=== PATIENT | female | born 1990 | race Caucasian/White ===

== ENCOUNTER 2021-05-02 13:34 | Emergency (ER) | payer MEDICAID ==
[~2021-05-02] VITALS: Ht 165.1 cm; Wt 81.8 kg
[2021-05-02] MEDS ORDERED: DIPH25CA83 PO (14:25)
[2021-05-02] MEDS ORDERED: PRED20TA PO (14:25)
== END 2021-05-02 14:40 | disposition home or self-care (01) ==
LOC: ER 13:34
DX: T63.441A Toxic effect of venom of bees, accidental (unintentional), initial encounter (principal); T78.40XA Allergy, unspecified, initial encounter; M79.605 Pain in left leg; Z79.899 Other long term (current) drug therapy; Y92.89 Other specified places as the place of occurrence of the external cause
CPT/HCPCS: 99283

== ENCOUNTER 2021-05-24 21:59 | Emergency (ER) | payer MEDICAID ==
[~2021-05-24] VITALS: Ht 165.1 cm; Wt 77.3 kg
[~2021-05-24 21:59] MED LIST: DIPH25CA83 PO
[2021-05-24 22:00] VITALS: BP 120/77
[2021-05-24 22:32] LABS: URINE HCG NEGATIVE (NEG)
[2021-05-24 22:35] LABS: CLARITY,URINE CLOUDY (Clear); COLOR,URINE YELLOW (Yellow); GLUCOSE, URINE NEGATIVE (Neg); KETONES,URINE NEGATIVE (Neg); LEUKOCYTE ESTERASE ,URINE NEGATIVE (Neg); NITRITES, URINE NEGATIVE (Neg); OCCULT BLOOD,URINE TRACE-INTACT (Neg); PROTEIN,URINE NEGATIVE (Neg)
[2021-05-24 22:38] LABS: BASOPHILS # (AUTO) 0.1 X10'3 (0-0.2); BASOPHILS % (AUTO) 0.9 % (0-1); EOSINOPHILS # (AUTO) 0.2 X10'3 (0-0.9); EOSINOPHILS % (AUTO) 2.1 % (0-6); HEMATOCRIT 41.6 % (35.0-45.0); HEMOGLOBIN 14.1 g/dl (12.0-16.0); LYMPHOCYTES # (AUTO) 3.1 X10'3 (1.1-4.8); LYMPHOCYTES % (AUTO) 35.5 % (21-51); MEAN CORPUSCULAR VOLUME 88.4 FL (78-98); MEAN PLATELET VOLUME 9.2 FL (7.4-10.4); MONOCYTES # (AUTO) 0.8 X10'3 (0-0.9); MONOCYTES % (AUTO) 8.7 % (2-12); NEUTROPHILS # (AUTO) 4.6 X10'3 (1.8-7.7); NEUTROPHILS % (AUTO) 52.8 % (42-75); PLATELET COUNT 255 X10'3 (140-440); RED CELL DISTRIBUTION WIDTH 15.4 % (11.5-14.5); WHITE BLOOD COUNT 8.7 X10'3 (4.5-11.0)
[2021-05-24 22:39] LABS: ALANINE AMINOTRANSFERASE 84 U/L (12-78); ALBUMIN 3.5 G/DL (3.4-5.0); ALBUMIN/GLOBULIN RATIO 0.9 (1.1-1.5); ALKALINE PHOSPHATASE 71 IU/L (46-116); ANION GAP 9 (8-16); ASPARTATE AMINO TRANSFERASE 35 U/L (10-37); BILIRUBIN,TOTAL 0.2 MG/DL (0.1-1.0); BLOOD UREA NITROGEN 23 MG/DL (7-18); BUN/CREATININE RATIO 24.7 (6.6-38.0); CALCIUM 8.3 MG/DL (8.5-10.1); CHLORIDE 104 MMOL/L (99-107); CREATININE 0.93 MG/DL (0.40-0.90); LIPASE 93 U/L (73-393); POTASSIUM 3.6 MMOL/L (3.5-5.1); SODIUM 139 MMOL/L (135-145); TOTAL CARBON DIOXIDE 26.2 MMOL/L (24-32); TOTAL PROTEIN 7.3 G/DL (6.4-8.2); eGFR 71 ML/MIN
[2021-05-24 22:40] LABS: GLUCOSE 135 MG/DL (70-104)
[2021-05-24 22:42] LABS: UA COLLECTION TYPE CLN CATCH MIDSTREAM
[2021-05-24 22:45] LABS: AMORPHOUS PHOSPHATES 3+; BACTERIA,URINE NONE SEEN /HPF (Neg); RBC,URINE NONE SEEN /HPF (0-2); SQUAMOUS EPITHELIAL CELL,UR NONE SEEN /LPF (FEW); WBC,URINE NONE SEEN /HPF (0-4)
== END 2021-05-25 05:57 | disposition left against medical advice (07) ==
LOC: ER 22:00
DX: R10.9 Unspecified abdominal pain (principal); Z53.21 Procedure and treatment not carried out due to patient leaving prior to being seen by health care provider
CPT/HCPCS: 36415; 80053; 81001; 81025; 83690; 85025

== ENCOUNTER 2021-08-22 00:23 | Emergency (ER) | payer MEDICAID ==
[~2021-08-22] VITALS: Ht 165.1 cm; Wt 5.7 kg
[2021-08-22 01:11] VITALS: BP 116/79
== END 2021-08-22 02:24 | disposition home or self-care (01) ==
LOC: ER 00:24
DX: Z13.89 Encounter for screening for other disorder (principal); F19.90 Other psychoactive substance use, unspecified, uncomplicated; Z56.0 Unemployment, unspecified; Z88.1 Allergy status to other antibiotic agents; Z79.899 Other long term (current) drug therapy
CPT/HCPCS: 99281

== ENCOUNTER 2021-10-07 01:49 | Emergency (ER) | payer MEDICAID ==
[~2021-10-07] VITALS: Ht 167.6 cm; Wt 58.0 kg
[2021-10-07 02:45] VITALS: BP 125/78
[2021-10-07] MEDS ORDERED: CLIN150C8 PO (03:22)
[2021-10-07] MEDS ORDERED: clindamycin 150mg capsule PO ONE (03:25)
[2021-10-07] MEDS ORDERED: ondansetron 4mg rapidly disintigrating tab PO ONE (03:25)
== END 2021-10-07 03:36 | disposition home or self-care (01) ==
LOC: ER 01:49
DX: L02.818 Cutaneous abscess of other sites (principal); Z56.0 Unemployment, unspecified; Z88.1 Allergy status to other antibiotic agents; Z79.899 Other long term (current) drug therapy
CPT/HCPCS: 99283

== ENCOUNTER 2021-11-04 01:21 | Emergency (ER) | payer MEDICAID ==
[~2021-11-04] VITALS: Ht 167.6 cm; Wt 58.0 kg
[~2021-11-04 01:21] MED LIST changes: +CLIN150C8 PO
[2021-11-04] MEDS ORDERED: diphenhydrAMINE 50 mg/ml inj IM ONE (01:35)
[2021-11-04] MEDS ORDERED: haloperidol lactate 5mg/ml inj IM ONE (01:35)
[2021-11-04] MEDS ORDERED: LORazepam 2 mg/ml vial IM ONE (01:35)
[2021-11-04] MEDS ORDERED: LORazepam 2 mg/ml vial ONE (01:36)
[2021-11-04] MEDS ORDERED: haloperidol lactate 5mg/ml inj ONE (01:37)
[2021-11-04] MEDS ORDERED: diphenhydrAMINE 50 mg/ml inj ONE (01:38)
--- NOTE | 2021-11-04 01:45 | NUR ---
The patient was [place] after she called 911 stating she did not know where she was at. Once the police arrived she became very agitated and and was screaming that she wanted to kill herself any way possible. On arrival to the ER she remained agitated and assaultive to staff. She was escorted to bed 25 in the ER and was placed in restraints.
[2021-11-04 02:59] LABS: BASOPHILS % (AUTO) 0.5 % (0-1); EOSINOPHILS # (AUTO) 0.4 X10'3 (0-0.9); EOSINOPHILS % (AUTO) 4.4 % (0-6); HEMOGLOBIN 13.9 g/dl (12.0-16.0); LYMPHOCYTES # (AUTO) 2.6 X10'3 (1.1-4.8); LYMPHOCYTES % (AUTO) 30.2 % (21-51); MEAN CORPUSCULAR HEMOGLOBIN 29.5 PG (27.0-31.0); MEAN CORPUSCULAR VOLUME 86.7 FL (78-98); MEAN PLATELET VOLUME 7.9 FL (7.4-10.4); MONOCYTES # (AUTO) 0.9 X10'3 (0-0.9); MONOCYTES % (AUTO) 10.4 % (2-12); NEUTROPHILS # (AUTO) 4.6 X10'3 (1.8-7.7); NEUTROPHILS % (AUTO) 54.5 % (42-75); PLATELET COUNT 315 X10'3 (140-440); RED BLOOD COUNT 4.73 X10'6 (4.20-5.60); WHITE BLOOD COUNT 8.5 X10'3 (4.5-11.0)
[2021-11-04 03:03] LABS: ALANINE AMINOTRANSFERASE 256 U/L (12-78); ALBUMIN 3.4 G/DL (3.4-5.0); ALBUMIN/GLOBULIN RATIO 0.7 (1.1-1.5); ALKALINE PHOSPHATASE 99 IU/L (46-116); ANION GAP 10 (8-16); ASPARTATE AMINO TRANSFERASE 100 U/L (10-37); BILIRUBIN,TOTAL 0.3 MG/DL (0.1-1.0); BLOOD UREA NITROGEN 20 MG/DL (7-18); BUN/CREATININE RATIO 21.3 (6.6-38.0); CHLORIDE 105 MMOL/L (99-107); CREATININE 0.94 MG/DL (0.40-0.90); ETHANOL < 0.010 GM/DL (0.0-0.010); POTASSIUM 3.9 MMOL/L (3.5-5.1); SODIUM 138 MMOL/L (135-145); TOTAL CARBON DIOXIDE 22.7 MMOL/L (24-32); TOTAL PROTEIN 8.2 G/DL (6.4-8.2); eGFR 70 ML/MIN
--- NOTE | 2021-11-04 03:03 | NUR ---
The patient remains in restraints.
[2021-11-04 03:04] LABS: GLUCOSE 109 MG/DL (70-104)
--- NOTE | 2021-11-04 05:17 | NUR ---
The patient appears to be sleeping
--- NOTE | 2021-11-04 07:10 | NUR ---
THe patient appears to be sleeping
--- NOTE | 2021-11-04 09:01 | NUR ---
The patient appears to be sleeping
--- NOTE | 2021-11-04 10:32 | NUR ---
The patient appears to be sleeping
--- NOTE | 2021-11-04 11:14 | NUR ---
Attempted to get the patient up to use the bathroom but she is sedated and would not budge.
--- NOTE | 2021-11-04 12:41 | NUR ---
The patient continues to be sedated. Attempted to wake her for lunch but she just turned over.
--- NOTE | 2021-11-04 13:48 | NUR ---
The patient appears to be sleeping
--- NOTE | 2021-11-04 15:06 | NUR ---
THe patient was awake and ate her lunch. She was assisted in changing into green scrubs and she provided a urine sample.
[2021-11-04 15:11] LABS: URINE HCG NEGATIVE (NEG)
[2021-11-04 15:19] LABS: URINE AMPHETAMINE SCREEN POSITIVE (Neg); URINE BARBITUATE SCREEN NEGATIVE (Neg); URINE BENZODIAZEPINES SCREEN NEGATIVE (Neg); URINE CANNABINOID SCREEN POSITIVE (Neg); URINE COCAINE SCREEN NEGATIVE (Neg); URINE METHADONE SCREEN NEGATIVE (Neg); URINE OPIATE SCREEN NEGATIVE (Neg); URINE PHENCYCLIDINE SCREEN NEGATIVE (Neg)
--- NOTE | 2021-11-04 16:46 | NUR ---
Packet to [facility]
--- NOTE | 2021-11-04 18:30 | NUR ---
Received report on patient that is sleeping. No apparent distress.
--- NOTE | 2021-11-04 21:13 | NUR ---
Patient continues to sleep in supine position. RR even and unlabored. No s/sx of distress.
--- NOTE | 2021-11-05 00:20 | NUR ---
Patient continues to sleep on her right side. RR even and unlabored. No s/sx of distress.
--- NOTE | 2021-11-05 02:33 | NUR ---
Patient appears to be asleep. No distress noted.
--- NOTE | 2021-11-05 03:26 | NUR ---
Patient appears to be asleep. No distress noted.
--- NOTE | 2021-11-05 03:27 | NUR ---
Received call from [employer] for 1:1. They will call back if accepted.
--- NOTE | 2021-11-05 05:07 | NUR ---
Patient sleeping on on left side. RR even and unlabored. No s/sx of distress.
--- NOTE | 2021-11-05 07:40 | NUR ---
PATIENT RECEIVED SLEEPING IN BED WITH NO S/S OF DISTRESS. WILL CONTINUE TO MONITOR.
[2021-11-05 08:30] LABS: CLARITY,URINE CLOUDY (Clear); GLUCOSE, URINE NEGATIVE (Neg); KETONES,URINE NEGATIVE (Neg); LEUKOCYTE ESTERASE ,URINE NEGATIVE (Neg); NITRITES, URINE NEGATIVE (Neg); OCCULT BLOOD,URINE NEGATIVE (Neg); PROTEIN,URINE NEGATIVE (Neg); UROBILINOGEN,URINE 0.2 E.U/dL (0.2-1.0)
[2021-11-05 08:41] LABS: COLOR,URINE DARK YELLOW (Yellow); UA COLLECTION TYPE CLN CATCH MIDSTREAM
[2021-11-05 08:42] LABS: WBC,URINE 0-4 /HPF (0-4)
[2021-11-05 08:43] LABS: BACTERIA,URINE 1+ /HPF (Neg); MUCUS STRANDS MANY /LPF (Neg); RBC,URINE 0-2 /HPF (0-2); SQUAMOUS EPITHELIAL CELL,UR MANY /LPF (FEW)
--- NOTE | 2021-11-05 09:30 | NUR ---
PATIENT AWOKEN TO EAT BREAKFAST. SHE WAS COMPLIANT WITH MORNING ASSESSMENT. 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
--- NOTE | 2021-11-05 11:05 | NUR ---
Carrington payton in [facility] - 11/05/21 at 1451 by MARANDA SOFYA LARIOS CALLED AT THIS TIME TO GATHER INFORMATION ON PATIENT FOR POSSIBLE PLACEMENT
--- NOTE | 2021-11-05 11:35 | NUR ---
PATIENT OBSERVED AMBULATING TO THE RESTROOM WITH A STEADY GAIT. SHE RETREATED BACK TO HER BED SHORTLY AFTER. NO COMPLAINTS OR S/S OF DISTRESS NOTED.
--- NOTE | 2021-11-05 13:30 | NUR ---
PATIENT NOTED TO BE TEARFUL, ENDORING THAT SHE "WANTS TO VOICES TO STOP". PATIENT NOTED LYING IN BED ON HER LEFT SIDE WHILE QUIETLY CRYING. MD NOTIFIED WITH A NEW ORDER FOR ZYPREXA 5MG TID. WILL CONTINUE TO MONITOR.
--- NOTE | 2021-11-05 14:20 | NUR ---
SOFYA LARIOS CALLED AT THIS TIME TO GATHER INFORMATION ON PATIENT FOR POSSIBLE PLACEMENT
[2021-11-05] MEDS ORDERED: OLANZapine 5mg rapidly disint. tablet PO ONE (14:50)
--- NOTE | 2021-11-05 14:58 | NUR ---
RN faxed to [facility] office updated med list and notes.
--- NOTE | 2021-11-05 15:30 | NUR ---
PATIENT OBSERVED SITTING IN HER ROOM AT THIS TIME COMBING OUT HER HAIR. SHE IS NOTED HAVING AN APPROPRIATE CONVERSATION WITH NEIGHBORING PATIENT. NO S/S OF DISTRESS OR CHANGES.
--- NOTE | 2021-11-05 17:30 | NUR ---
PATIENT OBSERVED SLEEPING ON HER LEFT SIDE IN BED AT THIS TIME. NO S/S OF DISTRESS. WILL CONTINUE TO MONITOR.
--- NOTE | 2021-11-05 17:51 | NUR ---
PATIENT HAS BEEN ACCEPTED TO [facility]. TO BE PICKED UP BY ART COORDINATOR AT APPROXIMATELY 1930 TONIGHT.
--- NOTE | 2021-11-05 19:22 | NUR ---
The patient is resting quietly on her bed. Transfer pending
[2021-11-05 19:46] VITALS: BP 112/74
[2021-11-05] MEDS ORDERED: OLANZapine 5mg rapidly disint. tablet PO SCH (21:00)
== END 2021-11-05 20:12 ==
LOC: ER 01:22
DX: F79 Unspecified intellectual disabilities (principal); R45.851 Suicidal ideations; F31.9 Bipolar disorder, unspecified; F15.90 Other stimulant use, unspecified, uncomplicated; Z56.0 Unemployment, unspecified; Z88.1 Allergy status to other antibiotic agents; Z20.822 Contact with and (suspected) exposure to COVID-19
CPT/HCPCS: 36415; 80053; 80305; 80320; 81001; 81025; 84443; 85025; 87635; 96372; 99285; C9803; J1200; J1630; J2060